=== PATIENT | male | born 1965 | race Caucasian/White ===

== ENCOUNTER 2022-01-16 21:34 | Inpatient (IN) | payer OTHER, SELFPAY ==
[2022-01-16 21:43] VITALS: BMI 26.7
[2022-01-16] MEDS ORDERED: Acetaminophen 325 MG TAB PO PRN (22:23)
[2022-01-16] MEDS ORDERED: Guaifenesin DM 100-10/5 ML UDCUP PO PRN (22:23)
[2022-01-16] MEDS ORDERED: Bisacodyl 10 MG SUPP PR PRN (22:23)
[2022-01-16] MEDS ORDERED: Ondansetron PF 4 MG/2 ML Vial IVP PRN (22:23)
[2022-01-16] MEDS ORDERED: Bisacodyl 5 MG TAB PO PRN (22:23)
[2022-01-16] MEDS ORDERED: Potassium Chloride 20 MEQ TAB PO SCH (22:30)
[2022-01-16] MEDS: Senokot S 8.6-50 MG TAB PO SCH (23:13)
[2022-01-16 23:19] LABS: INR-International Normal Ratio 1.7; PTT 26.4 sec (22.0-33.0); Prothrombin Time 17.7 sec (9.5-12.1)
[2022-01-16] MEDS: Calcium Carbonate 500 MG ChewTAB PO PRN (23:22)
[2022-01-16] MEDS ORDERED: prednisoLONE 15 MG/5 ML UDCUP PO SCH (23:45)
[2022-01-17] MEDS ORDERED: Piperacillin/Tazobactam 4.5 GM in Sodium Chloride 0.9% 100 ML IVPB SCH (01:30)
[2022-01-17] MEDS ORDERED: Piperacillin/Tazobactam 3.375 GM in Sodium Chloride 0.9% 100 ML IVPB SCH (01:45)
[2022-01-17] MEDS: Sodium Chloride 0.9% 1,000 ML IV SCH ×3 (01:46→21:34)
[2022-01-17] MEDS ORDERED: cefTRIAXone\\ROCEPHIN 2 GM in Sodium Chloride 0.9% 100 ML IVPB SCH (02:00)
[2022-01-17] MEDS: Calcium Carbonate 500 MG ChewTAB PO PRN (02:53)
[2022-01-17 05:14] LABS: #Basophils 0.1 10x3/uL (0.0-0.2); #Eosinphils 0.1 10x3/uL (0.0-0.5); %Basophils 0.6 % (0.0-2.0); %Eosinophils 0.4 % (0.0-6.0); %Lymphocytes 3.4 % (18.0-47.0); %Monocytes 6.9 % (0.0-10.0); %Neutrophils 87.8 % (40.0-75.0); Mean Corpuscular HGB CONC 35.3 g/dL (32.0-36.0); Mean Corpuscular Hemoglobin 33.3 pg (27.0-33.0); Mean Corpuscular Volume 94.5 fl (81.2-95.1); Mean Platelet Volume 9.9 fl (7.4-10.4); Platelet Count 346 10x3/uL (150-450); RBC Distribution Width 20.6 % (11.5-14.5); White Blood Cell (WBC) Count 13.7 10x3/uL (3.5-10.5)
[2022-01-17 05:24] LABS: ALT (SGPT) 49 U/L (8-55); AST (SGOT) 91 U/L (5-34); Albumin 3.1 g/dL (3.5-5.0); Alkaline Phosphatase 161 U/L (40-110); Anion Gap 14 mmol/L (10-20); BUN (Urea Nitrogen) 7 mg/dL (8.4-25.7); Bilirubin, Total 15.2 mg/dL (0.2-1.2); Calc. Creatinine Clearance 172 mL/min (70-130); Calcium 8.8 mg/dL (7.8-10.44); Carbon Dioxide 29 mmol/L (22-29); Chloride 99 mmol/L (98-107); Estimated GFR 114; Globulin 3.1 g/dL (2.4-3.5); Glucose 111 mg/dL (70-105); Magnesium 1.7 mg/dL (1.6-2.6); Potassium 3.6 mmol/L (3.5-5.1); Protein, Total 6.2 g/dL (6.0-8.3); Sodium 138 mmol/L (136-145)
[2022-01-17] MEDS ORDERED: Magnesium Sulfate/D5W 1 GM/100 ML BAG IVPB SCH (06:15)
[2022-01-17] MEDS ORDERED: Potassium Chloride 20 MEQ in Premix Bag 1 BAG IVPB SCH (08:00)
[2022-01-17] MEDS ORDERED: Enoxaparin Sodium 40 MG/0.4 ML SYRINGE SC SCH (09:00)
[2022-01-17] MEDS: Folic Acid 1 MG TAB PO SCH (09:24)
[2022-01-17] MEDS: Senokot S 8.6-50 MG TAB PO SCH ×2 (09:25→22:16)
[2022-01-17] MEDS: Polyethylene Glycol 3350 17 GM Packet PO SCH (09:25)
[2022-01-17] MEDS: Piperacillin/Tazobactam 3.375 GM in Sodium Chloride 0.9% 100 ML IVPB SCH ×2 (09:25→18:07)
[2022-01-17] MEDS: Thiamine 100 MG TAB PO SCH (09:25)
[2022-01-17] MEDS: Multivitamin W/ Minerals 1 TAB PO SCH (09:25)
[2022-01-17 13:34] LABS: Vitamin B12 1763 pg/mL (211-911)
[2022-01-17 13:43] LABS: HBCM Index 0.05 S/CO (0-0.79); HBSAg Index 0.24 S/CO (0-0.99); Hep A IgM AB Non-Reactive (NonReactive); Hep A IgM S/CO 0.13 S/CO (0-0.79); Hep B Surf Ag Non-Reactive S/CO (NonReactive); Hep C IgG Ab Non-Reactive (NonReactive); Hep C Index 0.05 S/CO (0-0.79); Hepatitis B Core IgM Abs Non-Reactive (NonReactive)
[2022-01-17] MEDS ORDERED: Morphine 2 MG/ML VIAL SLOW IVP SCH (17:15)
[2022-01-17] MEDS ORDERED: prednisoLONE 15 MG/5 ML UDCUP PO SCH (21:00)
[2022-01-18 01:28] LABS: Bilirubin 6 (Negative); Blood, Urine 10 (Negative); Clarity Clear (Clear); Glucose, Urine (Dipstick) Normal (Negative); Ketone, Urine 5 mg/dL (Negative); Leukocyte 25 (Negative); Nitrite Positive (Negative); Protein, Urine (Dipstick) 30 mg/dl (Neg-Trace); Specific Gravity, Urine 1.015 (1.002-1.036)
[2022-01-18 01:40] LABS: Squamous Epithelial 0-3 HPF (0-3)
[2022-01-18 01:41] LABS: Bacteria/HPF 2+ HPF (None Seen); Urine Culture Reflex Yes Yes
[2022-01-18] MEDS: Piperacillin/Tazobactam 3.375 GM in Sodium Chloride 0.9% 100 ML IVPB SCH ×3 (02:02→17:10)
[2022-01-18 05:59] LABS: Magnesium 1.7 mg/dL (1.6-2.6); Phosphorus 2.2 mg/dL (2.3-4.7)
[2022-01-18 09:20] LABS: #Basophils 0.1 10x3/uL (0.0-0.2); #Eosinphils 0.2 10x3/uL (0.0-0.5); #Monocytes 1.7 10x3/uL (0.0-1.1); #Neutrophils 12.5 10x3/uL (1.5-8.4); %Basophils 0.6 % (0.0-2.0); %Lymphocytes 6.5 % (18.0-47.0); %Monocytes 10.8 % (0.0-10.0); %Neutrophils 80.2 % (40.0-75.0); Mean Corpuscular Hemoglobin 33.4 pg (27.0-33.0); Mean Corpuscular Volume 95.4 fl (81.2-95.1); Mean Platelet Volume 10.1 fl (7.4-10.4); Platelet Count 348 10x3/uL (150-450); RBC Distribution Width 20.2 % (11.5-14.5); Red Blood Cell (RBC) Count 3.29 10x6/uL (4.32-5.72); White Blood Cell (WBC) Count 15.6 10x3/uL (3.5-10.5)
[2022-01-18 10:01] LABS: Anion Gap 12 mmol/L (10-20); BUN (Urea Nitrogen) 9 mg/dL (8.4-25.7); Calc. Creatinine Clearance 175 mL/min (70-130); Calcium 8.6 mg/dL (7.8-10.44); Carbon Dioxide 23 mmol/L (22-29); Chloride 105 mmol/L (98-107); Estimated GFR 114; Glucose 114 mg/dL (70-105); Potassium 3.4 mmol/L (3.5-5.1); Sodium 137 mmol/L (136-145)
[2022-01-18] MEDS: Multivitamin W/ Minerals 1 TAB PO SCH (10:13)
[2022-01-18] MEDS: Thiamine 100 MG TAB PO SCH (10:13)
[2022-01-18] MEDS: Folic Acid 1 MG TAB PO SCH (10:13)
[2022-01-18] MEDS: Polyethylene Glycol 3350 17 GM Packet PO SCH (10:14)
[2022-01-18] MEDS: Senokot S 8.6-50 MG TAB PO SCH ×2 (12:00→20:48)
[2022-01-18] MEDS ORDERED: Magnesium Citrate 300 ML BOT PO SCH (18:00)
[2022-01-19] MEDS: Piperacillin/Tazobactam 3.375 GM in Sodium Chloride 0.9% 100 ML IVPB SCH ×3 (03:24→18:49)
[2022-01-19 05:50] LABS: #Basophils 0.1 10x3/uL (0.0-0.2); #Eosinphils 0.1 10x3/uL (0.0-0.5); #Monocytes 1.6 10x3/uL (0.0-1.1); #Neutrophils 10.5 10x3/uL (1.5-8.4); %Basophils 0.4 % (0.0-2.0); %Eosinophils 0.9 % (0.0-6.0); %Lymphocytes 7.4 % (18.0-47.0); %Monocytes 11.6 % (0.0-10.0); %Neutrophils 78.4 % (40.0-75.0); Hemoglobin 10.3 g/dL (13.5-17.5); Mean Corpuscular HGB CONC 34.9 g/dL (32.0-36.0); Mean Corpuscular Hemoglobin 33.7 pg (27.0-33.0); Mean Corpuscular Volume 96.4 fl (81.2-95.1); Mean Platelet Volume 9.7 fl (7.4-10.4); Platelet Count 277 10x3/uL (150-450); Red Blood Cell (RBC) Count 3.06 10x6/uL (4.32-5.72); White Blood Cell (WBC) Count 13.4 10x3/uL (3.5-10.5)
[2022-01-19 05:58] LABS: Anion Gap 13 mmol/L (10-20); BUN (Urea Nitrogen) 9 mg/dL (8.4-25.7); Calc. Creatinine Clearance 198 mL/min (70-130); Calcium 8.2 mg/dL (7.8-10.44); Carbon Dioxide 25 mmol/L (22-29); Chloride 103 mmol/L (98-107); Estimated GFR 118; Glucose 92 mg/dL (70-105); Magnesium 1.8 mg/dL (1.6-2.6); Phosphorus 2.2 mg/dL (2.3-4.7); Potassium 3.3 mmol/L (3.5-5.1); Sodium 138 mmol/L (136-145)
[2022-01-19] MEDS ORDERED: predniSONE 20 MG TAB PO SCH (08:00)
[2022-01-19] MEDS: Thiamine 100 MG TAB PO SCH (10:07)
[2022-01-19] MEDS: Folic Acid 1 MG TAB PO SCH (10:08)
[2022-01-19] MEDS: Polyethylene Glycol 3350 17 GM Packet PO SCH (10:08)
[2022-01-19] MEDS: Multivitamin W/ Minerals 1 TAB PO SCH (10:08)
[2022-01-19] MEDS: Metamucil PACK PO SCH (10:09)
[2022-01-19] MEDS: prednisoLONE 15 MG/5 ML UDCUP PO SCH (10:11)
[2022-01-19 11:19] LABS: ALT (SGPT) 46 U/L (8-55); AST (SGOT) 87 U/L (5-34); Albumin 2.8 g/dL (3.5-5.0); Alkaline Phosphatase 150 U/L (40-110); Bilirubin, Direct 9.6 mg/dL (0.1-0.3); Bilirubin, Total 13.7 mg/dL (0.2-1.2); Protein, Total 5.6 g/dL (6.0-8.3)
[2022-01-19] MEDS: Calcium Carbonate 500 MG ChewTAB PO PRN (19:18)
[2022-01-20] MEDS: Calcium Carbonate 500 MG ChewTAB PO PRN (00:49)
[2022-01-20] MEDS: Piperacillin/Tazobactam 3.375 GM in Sodium Chloride 0.9% 100 ML IVPB SCH ×2 (00:54→11:29)
[2022-01-20 05:01] LABS: #Monocytes 1.4 10x3/uL (0.0-1.1); #Neutrophils 11.2 10x3/uL (1.5-8.4); %Basophils 0.2 % (0.0-2.0); %Eosinophils 0.2 % (0.0-6.0); %Lymphocytes 6.4 % (18.0-47.0); %Monocytes 10.2 % (0.0-10.0); Hemoglobin 9.8 g/dL (13.5-17.5); Mean Corpuscular HGB CONC 35.4 g/dL (32.0-36.0); Mean Corpuscular Hemoglobin 34.5 pg (27.0-33.0); Mean Corpuscular Volume 97.5 fl (81.2-95.1); Mean Platelet Volume 10.6 fl (7.4-10.4); Platelet Count 278 10x3/uL (150-450); RBC Distribution Width 20.1 % (11.5-14.5); Red Blood Cell (RBC) Count 2.84 10x6/uL (4.32-5.72); White Blood Cell (WBC) Count 13.6 10x3/uL (3.5-10.5)
[2022-01-20 05:15] LABS: Anion Gap 12 mmol/L (10-20); BUN (Urea Nitrogen) 11 mg/dL (8.4-25.7); Calc. Creatinine Clearance 201 mL/min (70-130); Calcium 8.2 mg/dL (7.8-10.44); Carbon Dioxide 23 mmol/L (22-29); Chloride 104 mmol/L (98-107); Estimated GFR 119; Glucose 111 mg/dL (70-105); Magnesium 1.7 mg/dL (1.6-2.6); Potassium 3.3 mmol/L (3.5-5.1); Sodium 136 mmol/L (136-145)
[2022-01-20] MEDS: Thiamine 100 MG TAB PO SCH (09:43)
[2022-01-20] MEDS: Multivitamin W/ Minerals 1 TAB PO SCH (09:43)
[2022-01-20] MEDS: Folic Acid 1 MG TAB PO SCH (09:43)
[2022-01-20] MEDS: prednisoLONE 15 MG/5 ML UDCUP PO SCH (09:44)
[2022-01-20] MEDS: Polyethylene Glycol 3350 17 GM Packet PO SCH (11:42)
[2022-01-20] MEDS: Metamucil PACK PO SCH (11:42)
[2022-01-20 12:01] VITALS: TEMP 98.1
[2022-01-20 14:13] VITALS: BP 155/86
== END 2022-01-20 15:31 | disposition home or self-care (01) | DRG 433 ==
LOC: OBSVTOIN 21:34 → CSHTELE 21:34
PROVIDERS: ADMIT Student in an Organized Health Care Education/Training Program; ATTEND Internal Medicine
DX: K70.10 Alcoholic hepatitis without ascites (principal); N39.0 Urinary tract infection, site not specified; K81.0 Acute cholecystitis; Z20.822 Contact with and (suspected) exposure to COVID-19; K59.00 Constipation, unspecified; E86.0 Dehydration; K44.9 Diaphragmatic hernia without obstruction or gangrene; K76.0 Fatty (change of) liver, not elsewhere classified; E87.6 Hypokalemia; D64.9 Anemia, unspecified; K64.9 Unspecified hemorrhoids; E83.42 Hypomagnesemia; K81.1 Chronic cholecystitis; Z87.891 Personal history of nicotine dependence
CPT/HCPCS: 36415; 74177; 76705; 78227; 80048; 80053; 80074; 80076; 81001; 82105; 82248; 82607; 83010; 83615; 83735; 84100; 84443; 85025; 85046; 85610; 85730; 87086; A9537; G0378; J2270; J2543; J3475; J3480; J3490; J7050; J7510; U0003; U0005

== ENCOUNTER 2022-01-22 13:00 | Emergency (ER) | payer OTHER ==
[2022-01-22 15:03] LABS: #Basophils 0.1 10x3/uL (0.0-0.2); #Eosinphils 0.2 10x3/uL (0.0-0.5); #Monocytes 1.3 10x3/uL (0.0-1.1); #Neutrophils 12.8 10x3/uL (1.5-8.4); %Basophils 0.5 % (0.0-2.0); %Lymphocytes 5.7 % (18.0-47.0); %Monocytes 8.7 % (0.0-10.0); %Neutrophils 82.9 % (40.0-75.0); Hemoglobin 11.3 g/dL (13.5-17.5); Mean Corpuscular HGB CONC 33.8 g/dL (32.0-36.0); Mean Corpuscular Volume 100.6 fl (81.2-95.1); Mean Platelet Volume 10.2 fl (7.4-10.4); Platelet Count 312 10x3/uL (150-450); RBC Distribution Width 20.1 % (11.5-14.5); Red Blood Cell (RBC) Count 3.32 10x6/uL (4.32-5.72); White Blood Cell (WBC) Count 15.4 10x3/uL (3.5-10.5)
[2022-01-22 15:04] LABS: INR-International Normal Ratio 1.5; PTT 24.8 sec (22.0-33.0); Prothrombin Time 16.4 sec (9.5-12.1)
[2022-01-22 15:09] LABS: ALT (SGPT) 68 U/L (8-55); AST (SGOT) 153 U/L (5-34); Alkaline Phosphatase 178 U/L (40-110); Anion Gap 15 mmol/L (10-20); BUN (Urea Nitrogen) 7 mg/dL (8.4-25.7); Bilirubin, Total 11.5 mg/dL (0.2-1.2); CK (CPK) 36 U/L (30-200); Calc. Creatinine Clearance 0 mL/min (70-130); Calcium 8.7 mg/dL (7.8-10.44); Carbon Dioxide 26 mmol/L (22-29); Chloride 102 mmol/L (98-107); Estimated GFR 114; Globulin 3.2 g/dL (2.4-3.5); Glucose 94 mg/dL (70-105); Lipase 31 U/L (8-78); Potassium 3.3 mmol/L (3.5-5.1); Protein, Total 6.2 g/dL (6.0-8.3); Sodium 140 mmol/L (136-145)
== END 2022-01-22 15:40 | disposition home or self-care (01) ==
LOC: CSHERS 13:00
DX: K70.10 Alcoholic hepatitis without ascites (principal); R60.0 Localized edema; D50.9 Iron deficiency anemia, unspecified; F17.210 Nicotine dependence, cigarettes, uncomplicated; F17.220 Nicotine dependence, chewing tobacco, uncomplicated
CPT/HCPCS: 36415; 71045; 80053; 82550; 83690; 83880; 84484; 85025; 85610; 85730; 93005